=== PATIENT | male | born 1955 | race Caucasian/White ===

== ENCOUNTER → 2016-05-25 | Outpatient (CLI) | payer OTHER ==
[~2016-05-25] MED LIST: 'PARAFON FORTE500 M1 PO; HYDROCODONE BIT1 T11 PO
[2016-05-25 09:54] LABS: ALBUMIN 3.6 gm/dl (3.1-4.5); ALKALINE PHOSPHATASE 69 U/L (45-117); BILIRUBIN, TOTAL 0.4 mg/dl (0.2-1.0); BUN 13 mg/dl (7-24); CARBON DIOXIDE 27 mmol/L (21-32); CHLORIDE 109 mmol/L (98-107); EST GLOM FILT AFRICAN AMERICAN > 60 ml/min; GLUCOSE 94 mg/dL (65-99); POTASSIUM 4.2 mmol/L (3.5-5.1); SGOT/AST 58 IU/L (3-35); SGPT/ALT 55 U/L (12-78); SODIUM 145 mmol/L (136-145); TOTAL PROTEIN 6.4 gm/dL (6.4-8.2)
[2016-05-25 10:08] LABS: C-REACTIVE PROTEIN < 0.29 MG/DL (0-0.3); CPK 2532 U/L (39-308)
[2016-05-25 10:36] LABS: FREE T4 1.23 ng/dl (0.76-1.46)
[2016-05-25 10:45] LABS: PTH INTACT 120.1 pg/mL (14.0-72.0)
== END | disposition home or self-care (01) ==
LOC: LAB 09:07
PROVIDERS: Psychiatry & Neurology Neurology
DX: R74.8 Abnormal levels of other serum enzymes (principal); R53.83 Other fatigue

== ENCOUNTER 2019-02-14 09:00 | Inpatient (IN) | payer OTHER ==
[2019-02-14] VITALS (10 sets, daily range): BP systolic 91–145; BP diastolic 54–79
[~2019-02-14] VITALS: Ht 172.7 cm; Wt 79.5 kg
[~2019-02-14 09:00] MED LIST changes: +ATORVASTATIN CA20 M1 PO; +B-121000 MCG PO; +BRILINTA90 M1 PO; +CARAFATE1 GM PO; +CLOBETASOL PROP15 GM T; +DEXILANT60 M1 PO; +ELIQUIS5 M1 PO; +FLOMAX0.4 MG PO; +HEARTBURN RELI150 MG PO; +LAC-HYDRIN FIV226 GM TP; +LEVOXYL112 MCG PO; +METOPROLOL25 MG PO; +PROAIR HFA8.5 GM INH; +QVAR REDIHALE10.6 G1 PO
[2019-02-14 09:25] LABS: BASO # 0.1 10*3/uL (0.0-0.1); BASO % 0.6 % (0.0-1.0); EOS # 1.1 10*3/uL (0.0-0.4); EOS % 9.7 % (1.0-4.0); HEMOGLOBIN 10.4 g/dl (14.0-18.0); LYMPH # 0.7 10*3/uL (1.3-4.4); LYMPH % 6.3 % (27.0-41.0); MEAN CELL VOLUME 89.3 fl (80.0-94.0); MEAN CORPUSCULAR HGB CONC 33.5 g/dl (33.0-37.0); MEAN PLATELET VOLUME 9.4 fl (9.6-12.3); MONO % 9.2 % (3.0-9.0); NEUT % 72.3 % (47.0-73.0); PLATELET COUNT AUTOMATED 579 10*3/uL (130-400); RED BLOOD COUNT 3.47 10*6/uL (4.50-5.90); RED CELL DISTRI WIDTH 14.1 % (0-14.5); WHITE BLOOD COUNT 11.1 10*3/uL (4.8-10.8)
[2019-02-14 09:36] LABS: ACT PARTIAL THROMBO TIME 29.3 SECONDS (20.0-32.1); INTERNATIONAL NORM RATIO 0.9 (2.0-3.5)
[2019-02-14 09:43] LABS: ALBUMIN 2.4 gm/dl (3.1-4.5); ALKALINE PHOSPHATASE 317 U/L (45-117); BUN 14 mg/dl (7-24); CHLORIDE 103 mmol/L (98-107); CREATININE 0.93 mg/dL (0.70-1.30); POTASSIUM 3.9 mmol/L (3.5-5.1); SGOT/AST 117 IU/L (3-35); SGPT/ALT 162 U/L (12-78); SODIUM 134 mmol/L (136-145); TOTAL PROTEIN 6.8 gm/dL (6.4-8.2)
[2019-02-14 09:46] LABS: TROPONIN I < 0.015 ng/ml (<0.045)
--- NOTE | 2019-02-14 10:27 | NUR ---
PT RESTING, NO NEEDS AT THIS TIME. PT OFFERED TO WATCH TV AND OKAY WITH. DAUGHTER STAYS AT BEDSIDE. PT INSTRUCTED TO CALL FOR ASSISTANCE
[2019-02-14 12:46] LABS: BILIRUBIN NEGATIVE (NEGATIVE); BLOOD NEGATIVE (NEGATIVE); CLARITY CLEAR (CLEAR); COLOR YELLOW (YELLOW); GLUCOSE NEGATIVE (NEGATIVE); KETONE NEGATIVE (NEGATIVE); LEUKO ESTERASE NEGATIVE (NEGATIVE); NITRITE NEGATIVE (NEGATIVE); SPECIFIC GRAVITY <= 1.005 (1.005-1.030); UROBILINOGEN 0.2 E.U./dl (0.2-1.0)
[2019-02-14 12:58] LABS: WBC 0-2 wbc/hpf (0-5)
--- NOTE | 2019-02-14 14:51 | NUR ---
PER DR. HARRIS, DR. AYERS AWARE OF CONSULT.
--- NOTE | 2019-02-14 14:55 | NUR ---
A 63, admitted to , under the services of HUSSAIN May MD with a diagnosis of DYSPNEA, PLEURAL EFFUSION. Chief complaint is sent from Dr Brooks's office for shortness of breath, cough. Patient arrived via stretcher from ER. Initial assessment completed. Vital signs taken and recorded. HUSSAIN MAY MD here to see patient. Orders received. See assessment for past medical history, medications and allergies. Patient and/or family oriented to unit. [facility] visitation policy reviewed. Clothing/patient valuable form completed. BOONE CARLSON
[2019-02-14] MEDS ORDERED: COLACE100 MG PO (15:04)
[2019-02-14] MEDS ORDERED: FERROUS SULFAT325 MG PO (15:05)
[2019-02-14] MEDS ORDERED: HYDROMORPHONE2 MG PO (15:07)
[2019-02-14] MEDS ORDERED: ZOFRAN4 MG PO (15:09)
[2019-02-14] MEDS ORDERED: APAP500 MG PO (15:10)
[2019-02-14] MEDS ORDERED: ASPIRIN ADULT L81 M1 PO (15:12)
[2019-02-14] MEDS ORDERED: CLOPIDOGREL75 MG PO (15:13)
[2019-02-14] MEDS ORDERED: PANTOPRAZOLE SO40 MG PO (15:14)
[2019-02-14] MEDS ORDERED: MI-ACID80 MG PO (15:15)
[2019-02-14] MEDS ORDERED: BREO ELLIPTA 11 EACH INH (15:22)
[2019-02-14] MEDS ORDERED: [UNRECOGNIZED DRUG - OTHER] JT (15:23)
--- NOTE | 2019-02-14 15:30 | NUR ---
PATIENTS SURGICIAL INCISIONS PHOTOGRAPHED AND NEW DRY DRESSINGS APPLIED. YELLOW SECRETIONS ON THE OLD DRESSING. PEG TUBE FEED STARTED, RUNNING @ 50ML/HR.
--- NOTE | 2019-02-14 16:21 | NUR ---
MEDICATED WITH DILAUDID 0.25MG IV SLOWLY FOR ABDOMINAL PAIN "8"/.
--- NOTE | 2019-02-14 16:26 | NUR ---
DR HARRSI SAID SHE SPOKE TO DR AYERS ABOUT CONSULTATION.
--- NOTE | 2019-02-14 16:36 | NUR ---
DR AYERS CALLED, UPDATED ON PT CONDITION.
--- NOTE | 2019-02-14 17:30 | NUR ---
PATIENT STATES DILAUDID WAS EFFECTIVE. PATIENT RESTING COMFORTABLY IN BED WITH FAMILY IN ROOM. WILL CONTINUE TO MONITOR.
--- NOTE | 2019-02-14 21:33 | NUR ---
DRESSING AROUND PEG TUBE SATURATED WITH YELLOW-GREEN COLORED DRAINAGE. DRESSING REMOVED, SITE CLEANED WITH NSS. SCANT AMOUNT OF BLOODY DRAINAGE NOTED NEAR SITE. PATIENT DENIES PAIN. NEW DRAIN SPONGE GAUZE APPLIED TO SITE AND SECURED WITH TAPE. PEG TUBE PLACEMENT CHECKED AND VERIFIED VIA AIR BOLUS. 0 CCs OF RESIDUAL NOTED. TUBE FLUSHED WITH 50 CCs OF STERILE WATER AND CARAFATE GIVEN. ANOTHER 50 CC FLUSH ADMINISTERED FOLLOWING CARAFATE. TUBE FEED REINITIATED AND RUNNING @ 50 CCs/HR. WILL MONITOR. BED LEFT LOCKED IN LOW POSITION, HOB ELEVATED >30 DEGREES, BED ALARM INTACT, CALL LIGHT IN REACH.
[2019-02-15] VITALS: BP 101/64
--- NOTE | 2019-02-15 00:39 | NUR ---
NOTIFIED OF PT'S C/O ITCHING. PT STATES THIS IS AN ONGOING PROBLEM THAT HE HAS HAD. STATES THEY GAVE HIM ATARAX AT A [facility] AND IS REQUESTING THAT HERE. NEW ORDER RECEIVED FOR ATARAX 10 MG Q6H PRN.
[2019-02-15 01:00] VITALS: BP 106/58
--- NOTE | 2019-02-15 05:48 | NUR ---
PT MEDICATED WITH PO NORCO FOR C/O ABD PAIN RATED 6/10. WILL MONITOR. CALL LIGHT IN REACH. BED ALARM INTACT.
[2019-02-15 07:07] LABS: BASO % 0.5 % (0.0-1.0); EOS # 0.8 10*3/uL (0.0-0.4); EOS % 9.4 % (1.0-4.0); HEMATOCRIT 29.4 % (42.0-52.0); HEMOGLOBIN 9.6 g/dl (14.0-18.0); LYMPH # 0.6 10*3/uL (1.3-4.4); LYMPH % 6.4 % (27.0-41.0); MEAN CELL VOLUME 91.9 fl (80.0-94.0); MEAN CORPUSCULAR HGB CONC 32.7 g/dl (33.0-37.0); MEAN PLATELET VOLUME 9.6 fl (9.6-12.3); MONO # 0.7 10*3/uL (0.1-1.0); MONO % 8.4 % (3.0-9.0); NEUT # 6.4 10*3/uL (2.3-7.9); NEUT % 73.2 % (47.0-73.0); PLATELET COUNT AUTOMATED 559 10*3/uL (130-400); RED CELL DISTRI WIDTH 14.3 % (0-14.5); WHITE BLOOD COUNT 8.7 10*3/uL (4.8-10.8)
--- NOTE | 2019-02-15 07:15 | NUR ---
ARRIVED ON SHIFT, INTRODUCED TO PATIENT, BEDSIDE REPORT RECEIVED, WHITE BOARD UPDATED, NO NEEDS VOICED AT THIS TIME.
[2019-02-15 07:21] LABS: ALBUMIN 2.2 gm/dl (3.1-4.5); ALKALINE PHOSPHATASE 259 U/L (45-117); BUN 16 mg/dl (7-24); CHLORIDE 104 mmol/L (98-107); CREATININE 0.96 mg/dL (0.70-1.30); POTASSIUM 3.7 mmol/L (3.5-5.1); SGOT/AST 62 IU/L (3-35); SGPT/ALT 106 U/L (12-78); SODIUM 135 mmol/L (136-145); TOTAL PROTEIN 6.2 gm/dL (6.4-8.2)
[2019-02-15 08:00] VITALS: BP 98/68
--- NOTE | 2019-02-15 08:00 | NUR ---
Shift chart check completed.
--- NOTE | 2019-02-15 09:00 | NUR ---
Horse Rancher in to talk to patient. Patient states lives at home with his . There are 8 steps in the home. Physician: Dr. Cyrus Brooks Pharmacy: [facility] Home health services: currently has [facility] Patient's level of ADLs: INDEPENDENT Patient has working utilities: yes DME: none Follow-up physician's appointment after d/c: he prefers to make his own follow up appt after discharge Does patient want to access PORTAL?: no Discharge plan discussed with patient, , son, and daughter who are all at the bedside. He lives at home with his . He is independent in his ADLs and ambulation. Discussed home health care services and he currently has [facility] and would like to resume those services upon discharge. When medically stable he will be discharged to home with the resumption of his [facility] care services. Family will provide transportation on discharge. Daughter is concerned about patient receiving his tube feeding as ordered. There are cans located on his bedside table as she states the hospital doesn't provide what he needs. NAKIA KRAUS
--- NOTE | 2019-02-15 09:18 | NUR ---
PATIENT C/O OF PAIN ACROSS CHEST OF 12/24 HE DESCRIBES CONSTANT AND RELATES IT TO HIS COUGH, MEDICATED WITH DILAUDID 0.25MG
--- NOTE | 2019-02-15 09:21 | NUR ---
PATIENT HAD NORCO AT 0545, IT WAS EFFECTIVE BUT DID NOT LAST LONG. MEDICATED WITH DILAUDID 0.25MG ORDERED.
--- NOTE | 2019-02-15 10:18 | NUR ---
PATIENT REPORTS GOOD RELIEF FROM DILAUDID GIVEN X 1 HOUR AGO PAIN NOW 07/24
--- NOTE | 2019-02-15 10:39 | NUR ---
PAULO GALVIN [id number] Please refer to the physician's history and physical for past medical history, comorbid conditions, and allergies. Diagnosis: DYSPNEA PLEURAL EFFUSION Festus Score: 19,LOW OR NO RISK WOUND DESCRIPTIONS: Patient's PEG tube site asymptomatic at time of assessment. No drainage noted at time of assessment. Skin pink and intact around site. Patient denied pain to this area at time of assessment. Patient's ELSA drain site asymptomatic at time of assessment. No drainage noted at time of assessment. Skin around site pink and intact at time of assessment. Intact scab noted proximal to the ELSA drain site. Patient's daughter states patient had a chest tube when at [facility] to have esophagus removed. Surface the patient is resting on: Isoflex SKIN PREVENTION RECOMMENDATION: 1. Pressure redistribution support surface as appropriate 2. Elevate heels 3. Remove boots/TEDS every shift and reapply 4. Head of bed 30 degrees as tolerated 5. Assess nutrition and hydration 6. Manage moisture 7. Avoid the use of containment devices while in bed 8. Use absorptive products on surfaces limit layers of linens on bed 9. Turn and reposition every 1-2 hours in bed and every 1 hour in chair as tolerated 10. Weight shifts every 15 minutes while up in chair 11. Offloading with pillows or device to keep heels elevated off bed 12. Monitor skin at least every shift 13. Inspect under medical devices twice a day WOUND TREATMENT RECOMMENDATIONS: Cleanse skin around PEG tube site with soap and water pat dry and leave open to air. Cleanse skin around ELSA drain site with NSS pat dry and apply gauze secure with paper tape. Change every day and as needed for soiling.
[2019-02-15 12:00] VITALS: BP 107/62
[2019-02-15 16:00] VITALS: BP 110/70; BP 121/71; BP 143/76
--- NOTE | 2019-02-15 16:36 | NUR ---
PATIENT C/O ABD PAIN 02/23, HE IS WINCING AND GRIMIACING, MEDICATED WITH DILAUDID 0.25 MG ORDERED.
--- NOTE | 2019-02-15 17:36 | NUR ---
PATIENT STATES DILAUDID IS EFFECTIVE FOR HIS ABD PAIN PAIN NOW 2/, NO FURTHER GRIMACING.
[2019-02-15 20:00] VITALS: BP 123/52
--- NOTE | 2019-02-15 23:06 | NUR ---
PATIENT C/O ABD PAIN. RATES 11/23. MEDICATED WITH DILAUDID. WILL CHECK EFECTIVENESS.
[2019-02-16] VITALS: BP 121/47
--- NOTE | 2019-02-16 06:12 | NUR ---
PATIENT C/O SEVERE ABDOMINAL PAIN RATES 02/23. MEDICATED WITH DILAUDID. PATIENT ALSO REQUESTING ATARAX FOR HIS ITCHING. WILL CHECK EFFECTIVENESS.
[2019-02-16 06:42] LABS: BASO # 0.1 10*3/uL (0.0-0.1); BASO % 0.7 % (0.0-1.0); EOS % 11.9 % (1.0-4.0); HEMATOCRIT 30.3 % (42.0-52.0); HEMOGLOBIN 9.8 g/dl (14.0-18.0); LYMPH # 0.5 10*3/uL (1.3-4.4); LYMPH % 5.4 % (27.0-41.0); MEAN CELL VOLUME 92.9 fl (80.0-94.0); MEAN CORPUSCULAR HGB 30.1 pg (27.0-31.0); MEAN CORPUSCULAR HGB CONC 32.3 g/dl (33.0-37.0); MEAN PLATELET VOLUME 9.6 fl (9.6-12.3); MONO % 10.9 % (3.0-9.0); NEUT % 68.8 % (47.0-73.0); PLATELET COUNT AUTOMATED 570 10*3/uL (130-400); RED BLOOD COUNT 3.26 10*6/uL (4.50-5.90); RED CELL DISTRI WIDTH 14.4 % (0-14.5); WHITE BLOOD COUNT 8.7 10*3/uL (4.8-10.8)
[2019-02-16 06:58] LABS: BUN 15 mg/dl (7-24); CHLORIDE 104 mmol/L (98-107); POTASSIUM 3.8 mmol/L (3.5-5.1); SODIUM 137 mmol/L (136-145)
--- NOTE | 2019-02-16 07:10 | NUR ---
ARRIVED ON SHIFT, INTROUCED TO PATIENT BESIDE REPORT RECEIVED, WHITE BOARD UPDATED. NO NEEDS VOICED AT THIS TIME.
[2019-02-16 08:00] VITALS: BP 118/10
--- NOTE | 2019-02-16 09:00 | NUR ---
Canal Boat Captain in to see patient. No new needs or request at this time. When medically stable he will be discharged to home with the resumption of his [facility] services.
--- NOTE | 2019-02-16 09:15 | NUR ---
Shift chart check completed.
--- NOTE | 2019-02-16 09:41 | NUR ---
Shift chart check completed./
--- NOTE | 2019-02-16 11:30 | NUR ---
and daughter here visiting. Resting in bed with elevated HOB. Watching TV. heels elevated on pillow support. Pleasant. Tricia SERRANO
[2019-02-16 12:00] VITALS: BP 108/68
[2019-02-16 16:00] VITALS: BP 113/64
--- NOTE | 2019-02-16 18:15 | NUR ---
C/O PAIN UPPER ABD PAIN 3/4, DESCIBES SHARP. MEDICATED WITH PRN NORCO ORDERED.
--- NOTE | 2019-02-16 19:14 | NUR ---
patient reports good effect from norco given, pain 2/10 and tolerable.
[2019-02-16 20:00] VITALS: BP 110/62
--- NOTE | 2019-02-16 23:15 | NUR ---
PATIENT C/O BACK AND CHEST PAIN CAUSED BY COUGHING. MEDICATED WITH DILAUDID. RATES PAIN 10/24. WILL CHECK EFFECTIVENESS.
[2019-02-17] VITALS: BP 107/60
--- NOTE | 2019-02-17 00:45 | NUR ---
PATIENT RESTING COMFORTABLY IN BED. RESPIRATIONS EASY, NON LABORED. PT. STATES MEDICATION EFFECTIVE. BED IN LOWEST POSITION, CALL LIGHT WITHIN REACH. WILL CONTINUE TO MONITOR.
--- NOTE | 2019-02-17 03:03 | NUR ---
PATIENT C/O SEVERE ABDOMINAL PAIN DUE TO COUGHING. RATES 01/24. MEDICATED WITH NORCO. WILL CHECK EFFECTIVENESS.
[2019-02-17 05:45] VITALS: BP 103/65
--- NOTE | 2019-02-17 05:46 | NUR ---
PATIENT WALKED BACK FROM BATHROOM IN DISTRESSING ABDOOMINAL PAIN CAUSED BY COUGHING. PATIENT TEARFUL. RATES PAIN 10/10. MEDICATED WITH DILAUDID. PATIENT ALSO VERY ITHCING MEDICATED WITH PRN ATARAX. WILL CHECK EFFECTIVENESS.
[2019-02-17 08:04] VITALS: BP 115/68
[2019-02-17] MEDS ORDERED: HYCODAN/HYDROMET5 ML PO (09:49)
[2019-02-17] MEDS ORDERED: CEFUROXIME AXE250 MG PO (09:49)
[2019-02-17 12:00] VITALS: BP 108/70
--- NOTE | 2019-02-17 13:25 | NUR ---
Discharge instructions reviewed with patient/family. Patient receptive and verbalizes understanding. Follow-up care arranged. Written instructions given to patient/family. MANDY GOTTI
--- NOTE | 2019-02-17 13:44 | NUR ---
Faxed resumption home health order to [facility]
== END 2019-02-17 13:25 | disposition home or self-care (01) | DRG 193 ==
LOC: ED 09:00 → 4E 13:43 → EDHOLD 13:43 → 4E 14:32
PROVIDERS: Emergency Medicine; Physician Assistant; ADMIT Internal Medicine
DX: J18.9 Pneumonia, unspecified organism (principal); E43 Unspecified severe protein-calorie malnutrition; J80 Acute respiratory distress syndrome; C77.9 Secondary and unspecified malignant neoplasm of lymph node, unspecified; J44.0 Chronic obstructive pulmonary disease with (acute) lower respiratory infection; R62.7 Adult failure to thrive; R91.1 Solitary pulmonary nodule; R74.0 Nonspecific elevation of levels of transaminase and lactic acid dehydrogenase [LDH]; E03.9 Hypothyroidism, unspecified; I10 Essential (primary) hypertension; I25.10 Atherosclerotic heart disease of native coronary artery without angina pectoris; N40.0 Benign prostatic hyperplasia without lower urinary tract symptoms; E78.2 Mixed hyperlipidemia; K21.9 Gastro-esophageal reflux disease without esophagitis; Z93.1 Gastrostomy status; Z86.711 Personal history of pulmonary embolism; Z85.01 Personal history of malignant neoplasm of esophagus; Z88.8 Allergy status to other drugs, medicaments and biological substances; Z88.6 Allergy status to analgesic agent; Z92.21 Personal history of antineoplastic chemotherapy; Z92.3 Personal history of irradiation; Z95.5 Presence of coronary angioplasty implant and graft; Z68.26 Body mass index [BMI] 26.0-26.9, adult